=== PATIENT | male | born 1995 | race Caucasian/White ===

== ENCOUNTER 2017-05-13 01:22 | Emergency (ER) | payer SELFPAY ==
[2017-05-13] MEDS ORDERED: NS(*) 0.9% 1000 ML BAG 1,000 ML IV ONE (01:25)
[2017-05-13] MEDS ORDERED: ONDANSETRON 4 MG/2 ML VIAL IVP ONE (01:25)
--- NOTE | 2017-05-13 01:49 | ER Report ---
History and Physical Time Seen By MD: 01:26 Hx. of Stated Complaint: PT FOUND DR[facility]K [facility]. BROUGHT IN BY EMS, PD INVOLVED. PT IS A&O X 1. NOT ABLE TO ANSWER QUESTIONS. HPI/ROS CHIEF COMPLAINT: Chcf clearance, alcohol intoxication HISTORY OF PRESENT ILLNESS: 21-year-old male brought in by EMS from a [facility] dormitory. Patient was found passed out in the hallway vomiting on himself. He was also urinary incontinent. Bystanders report. He consumes significant amounts of alcohol. REVIEW OF SYSTEMS: Respiratory: No cough, no dyspnea. Cardiovascular: No chest pain, no palpitations. Gastrointestinal: As above Musculoskeletal: No back pain. Unable To Obtain Past Medical: Unable to Obtain/Update Reviewed Nurses Notes: Yes Constitutional Vital Sign - Last 24 Hours 05/13/17 05/13/17 05/13/17 05/13/17 01:25 01:30 01:45 01:59 Temp 98.7 Pulse 99 80 75 Resp 16 B/P (MAP) 110/70 107/67 (80) 102/66 (78) Pulse Ox 95 90 90 O2 Delivery Room Air Physical Exam General Appearance: The patient is alert, has no immediate need for airway protection and no current signs of toxicity. Palpation of the head and neck reveal no tenderness or trauma. Patient responds to loud verbal stimulation with groaning. He is a heavy odor of EtOH and emesis on his breath. HEENT: Pupils equal and round no injection. Oropharynx without evidence of dental trauma Respiratory: Chest is non tender, lungs are clear to auscultation. No chest wall tenderness Cardiac: regular rate and rhythm Gastrointestinal: Abdomen is soft and non tender, no masses, bowel sounds normal. Musculoskeletal: Neck: Neck is supple and non tender. Extremities have full range of motion and are non tender. Skin: No rashes or lesions. DIFFERENTIAL DIAGNOSIS: After history and physical exam differential diagnosis was considered for alcohol intoxication, alf clearance, polysubstance abuse Medical Decision Making Data Points Laboratory Hematology Test 05/13/17 01:25 Serum Alcohol 221 mg/dl Chemistry Test 05/13/17 01:25 Serum Alcohol 221 mg/dl Toxicology Test 05/13/17 01:25 Serum Alcohol 221 mg/dl ED Course/Re-evaluation Clinical Indication for ER IV: Hydration, IV Access ED Course Patient was admitted to an examination room. H&P was done. The differential diagnoses was considered. On clinical examination. Vital signs are stable. Patient has no evidence of head trauma or neck trauma. He appears grossly alcohol intoxicated. Blood alcohol returns at 221. He is given 1 L of normal saline and Zofran 8 mg IV. He is medically cleared for alf admission. Decision to Disposition Date: May 13, 2017 Decision to Disposition Time: 01:48 Depart Departure Latest Vital Signs Vital Signs Date Time Temp Pulse Resp B/P (MAP) Pulse Ox O2 Delivery O2 Flow Rate FiO2 05/13/17 01:59 102/66 (78) 05/13/17 01:45 75 90 05/13/17 01:25 98.7 16 Room Air Impression: Primary Impression: Medical clearance for incarceration Additional Impression: Alcohol intoxication Condition: Improved Disposition: [facility] TO LONG TERM/CORRECTIONAL F Patient Instructions: Alcohol Intoxication (ED) Additional Instructions: Medical clear for alf admission Problem Qualifiers Additional Impression: Alcohol intoxication Complication of substance-induced condition: uncomplicated Qualified Codes: F10.920 - Alcohol use, unspecified with intoxication, uncomplicated JACINTO MARTINEZ DO May 13, 2017 01:49
[2017-05-13 01:59] VITALS: BP 102/66
== END 2017-05-13 02:06 ==
LOC: ER 01:24
DX: F10.920 Alcohol use, unspecified with intoxication, uncomplicated (principal); Y90.7 Blood alcohol level of 200-239 mg/100 ml
CPT/HCPCS: 80320; 96361; 96374; 96375; 99284; J2405; J7030

== ENCOUNTER → 2017-05-13 | Outpatient (CLI) | payer SELFPAY | LOC: AMB 00:47 | PROVIDERS: ATTEND Nurse Practitioner | DX: F10.129 Alcohol abuse with intoxication, unspecified (principal) | CPT/HCPCS: A0425; A0429 ==